=== PATIENT | male | born 1965 | race Caucasian/White ===

== ENCOUNTER 2021-05-16 11:34 | Emergency (ER) | payer MEDICAID ==
[~2021-05-16] VITALS: Ht 167.6 cm; Wt 73.0 kg
[~2021-05-16 11:34] MED LIST: AMLO10TA80 PO; OMEP20CA14 PO; THIA100T72 PO
[2021-05-16] MEDS ORDERED: ASPIRIN 81MG TABLET PO ONE (12:00)
[2021-05-16] MEDS ORDERED: FAMOTIDINE 20MG TABLET PO ONE (12:00)
[2021-05-16 12:40] LABS: BASOPHILS % 1.4 % (0.0-2.0); EOSINOPHILS % 0.6 % (0.0-5.0); HEMATOCRIT. 33.8 % (42.0-52.0); HEMOGLOBIN. 11.1 g/dL (14.0-18.0); LYMPHOCYTES % 34.5 % (20.0-50.0); MEAN CORPUSCULAR HEMOGLOBIN 30.1 pg (28.0-32.0); MEAN CORPUSCULAR VOLUME 91.5 fL (80.0-94.0); MEAN PLATELET VOLUME 7.8 fl (7.4-10.4); MONOCYTES % 9.6 % (2.0-8.0); NEUTROPHILS % 53.9 % (40.0-76.0); PLATELET 187 x1000/uL (130-400); RED BLOOD CELL COUNT 3.69 mill/uL (4.7-6.1); RED CELL DISTRIBUTION WIDTH 18.4 % (11.6-14.6)
[2021-05-16 12:45] LABS: CHLORIDE 104 mEq/L (98-107)
[2021-05-16 13:19] LABS: ETHANOL BLOOD 392 mg/dL
[2021-05-16 17:56] VITALS: BP 112/83
== END 2021-05-16 18:33 | disposition home or self-care (01) ==
LOC: ER 11:34
DX: F10.129 Alcohol abuse with intoxication, unspecified (principal); Y90.8 Blood alcohol level of 240 mg/100 ml or more; I49.8 Other specified cardiac arrhythmias; E11.9 Type 2 diabetes mellitus without complications; I10 Essential (primary) hypertension
CPT/HCPCS: 36415; 71045; 80053; 80320; 83880; 84484; 85025; 93005; 99285; G0480